=== PATIENT | male | born 1945 | race Caucasian/White ===

== ENCOUNTER → 2021-12-16 09:39 | Outpatient (BNVA) | payer MEDICARE, BC, SELFPAY | PROVIDERS: PCP Student in an Organized Health Care Education/Training Program; Referring Provider Student in an Organized Health Care Education/Training Program; Visit Provider Anesthesiology Pain Medicine | DX: M47.816 Spondylosis without myelopathy or radiculopathy, lumbar region (principal); M51.16 Intervertebral disc disorders with radiculopathy, lumbar region; M67.919 Unspecified disorder of synovium and tendon, unspecified shoulder | CPT/HCPCS: 99204 ==

== ENCOUNTER 2022-01-19 16:29 | Outpatient (CLI) | payer MEDICARE, BC, SELFPAY ==
--- NOTE | 2022-01-19 16:45 | MR_ITS ---
WS: [id number] MRI LUMBAR SPINE NONCONTRAST HISTORY: M48.062 - Spinal stenosis, lumbar region with neurogenic claudication, LEFT leg numbness fro m hip to knee. COMPARISON: None available. TECHNIQUE: Sagittal and axial multisequence imaging is submitted. Mild straightening of the normal lumbar lordosis. Mild disc desiccation throughout. Moderate narrowing of the disc at L4-5. No marrow edema or fracture . Conus terminates normally at L1-2 disc level. L1-L2: Normal. L2-L3: Very shallow LEFT foraminal disc protrusion without contact on the nerve roots. No high-grade stenosis. L3-L4: Mild annular disc bulging with ligamentum flavum and facet joint arthritis. There is encroachm ent upon the thecal sac. Narrowing of the subarticular recesses bilaterally and additional bilateral foraminal narrowing, LEFT greater than RIGHT. L4-L5: Mild annular disc bulging and mild facet arthritis. There is encroachment and narrowing of the central thecal sac. There is disc contacting and slightly displacing and effacing the ventral CSF. A symmetric disc bulging extends greatest into the LEFT subarticular recess and foramen causing complet e effacement of the fat. There is moderate central stenosis with disc contacting the traversing L5 ne rve roots in the subarticular recesses and additional mild bilateral foraminal narrowing. L5-S1: No stenosis. LEFT kidney is not present. Prior nephrectomy. MR/MR lumbar spine wo con* [id number] IMPRESSION: 1. Moderate central canal stenosis with bilateral subarticular recess stenosis and disc contacting the traversing L5 nerve roots bilaterally. Stenosis is a c ombination of facet disease and disc disease and osteophytosis. Slightly greate r contact on the LEFT L5 nerve root in the subarticular recess and proximal for amen. 2. Very shallow LEFT foraminal disc protrusion at L2-3. 3. Mild narrowing of the subarticular recesses and foramina at L3-4. LEFT grea ter than RIGHT. 4. Prior LEFT nephrectomy.
--- NOTE | 2022-01-19 17:15 | MR_ITS ---
WS: [id number] MRI LEFT SHOULDER HISTORY: LEFT shoulder pain. Surgery 6 years ago. COMPARISON: None available. TECHNIQUE: Multiplanar sequences of the shoulder joint are submitted. No significant narrowing or osteophytosis at the AC joint. Mild widening of the AC joint without disp lacement may be from the prior surgery. No os acromion. Biceps tendon is not identified in the bicipi justice groove. Mildly high riding humeral head. Moderate narrowing of the glenohumeral joint with small osteophytes along the articular surface of the glenoid. Increased T2 signal in the distal supraspinatus tendon. M ost significant from tendinopathy. No full-thickness tear is identified. A very tiny insertion site t ear with interstitial extension is not completely excluded. No additional signal abnormalities within the tendons of the rotator cuff. No muscle atrophy or edema. Surface irregularity involving the leo oid and intrasubstance degeneration. No definite tears are identified. There are linear tracts in the proximal humerus. This may be from prior shoulder surgery. MR/MR shoulder LT wo con* [id number] IMPRESSION: 1. No significant rotator cuff tear identified. 2. Suspicious but not confirmatory for very small insertion site tear of the s upraspinatus with interstitial extension. 3. No muscle edema or atrophy. 4. Biceps tendon not identified in the bicipital groove. Suspect chronic bicep s tendon dislocation or tear. 5. Intrasubstance degeneration in the labrum. 6. Glenohumeral joint arthritis is mild to moderate.
== END 2022-01-19 16:30 | disposition home or self-care (01) ==
PROVIDERS: PCP Student in an Organized Health Care Education/Training Program; Visit Provider Anesthesiology Pain Medicine
DX: M48.062 Spinal stenosis, lumbar region with neurogenic claudication (principal); M67.919 Unspecified disorder of synovium and tendon, unspecified shoulder; Z90.5 Acquired absence of kidney
CPT/HCPCS: 72148; 73221

== ENCOUNTER → 2022-01-26 09:10 | Outpatient (BNVA) | payer MEDICARE, BC, SELFPAY | PROVIDERS: PCP Student in an Organized Health Care Education/Training Program; Visit Provider Anesthesiology Pain Medicine | DX: G89.29 Other chronic pain (principal); M47.816 Spondylosis without myelopathy or radiculopathy, lumbar region; M51.16 Intervertebral disc disorders with radiculopathy, lumbar region; M67.912 Unspecified disorder of synovium and tendon, left shoulder; M79.605 Pain in left leg | CPT/HCPCS: 99214 ==

== ENCOUNTER → 2023-03-31 08:32 | Outpatient (BNVA) | payer MEDICARE, BC, SELFPAY | PROVIDERS: PCP Family Medicine; Visit Provider Family Medicine | DX: I10 Essential (primary) hypertension (principal); E78.5 Hyperlipidemia, unspecified; M51.16 Intervertebral disc disorders with radiculopathy, lumbar region; I25.10 Atherosclerotic heart disease of native coronary artery without angina pectoris | CPT/HCPCS: 80053; 80061 ==

== ENCOUNTER 2023-09-06 15:17 | Outpatient (CLI) | payer MEDICARE, BC, SELFPAY ==
--- NOTE | 2023-09-06 15:30 | CT_ITS ---
WS: [id number] CT ANGIOGRAM CEREBRAL AND CAROTID ARTERIES HISTORY: hearing heartbeat in left ear TECHNIQUE: CT angiogram is performed of the carotid and cerebral arteries. During arterial injection imaging is obtained from the skull vertex to the aortic arch in 1.25 mm imaging. Coronal and sagittal reformats are submitted. Additional multi planar reformats of the carotid and cerebral arteries are submitted, MIP imaging also reviewed. NASCET criteria utilized. [facility] CT [facility] at least one of these dose optimization techniques: automated exposure control; mA and/or kV adjust ment per patient size (includes targeted exams where dose is matched to clinical indication); or iter ative reconstruction. CONTRAST: Omnipaque 350; 100 mL IV. DLP: 1347.43 mGy.cm COMPARISON: None available. Noncontrast CT head: No intracranial hemorrhage. Mild small vessel ischemic disease and mild atrophy. Ectatic vertebral and carotid arteries with calcification. Carotid Angiogram: Right carotid: Common carotid artery: Arises normally from the innominate artery. No significant plaque or stenosis. Internal carotid artery: Small amount of calcified plaque and intimal thickening. Stenosis less than 50%. External carotid artery: Patent. Left carotid: Common carotid artery: Arises normally from the aorta. No significant plaque or stenosis. Internal carotid artery: Mild calcified plaque and intimal thickening at the bifurcation. No high-gra de stenosis. External carotid artery: Patent. Right vertebral artery: Increasing calcification in the distal vertebral artery. No occlusion. Left vertebral artery: Increasing calcification in the distal vertebral artery. No occlusions. Subclavian arteries: No stenosis or significant abnormality. Upper thorax: Normal. Thyroid gland: Normal. Osseous structures: Advanced cervical spondylosis. No fractures. CEREBRAL ANGIOGRAM: Intracranial vertebral arteries: Moderate amount of calcified plaque. No high-grade stenosis. Basilar artery: No significant stenosis or occlusion. No aneurysm. Intracranial Internal carotid arteries: Calcified plaque through the cavernous carotid arteries. No h igh-grade occlusions. Middle cerebral arteries: Normal. Anterior cerebral arteries and ACOM: Normal. Posterior cerebral arteries and PCOM's: Normal. Dural venous sinuses are normally enhancing. Mastoid air cells: Normal. No dehiscence of the wall of the inner ear or bulging of the carotid arter y or jugular vein. Paranasal sinuses: Mild mucoperiosteal thickening RIGHT maxillary sinus. Calvarium: Normal. IMPRESSION: 1. No significant cervical carotid artery stenosis. Stenosis less than 50%. 2. Increasing plaque in the cavernous carotid arteries. Stenosis less than 50%. 3. No cerebral artery aneurysm or occlusions. 4. No bulging of the carotid artery or jugular artery into the auditory canal.
[2023-09-06 15:51] LABS: Blood Urea Nitrogen 20 mg/dL (8-23)
[2023-09-06] MEDS: iohexol 350 mg/mL 500 mL Btl (per mL) IV (16:08)
== END 2023-09-06 15:18 | disposition home or self-care (01) ==
LOC: RAD 15:18
PROVIDERS: PCP Family Medicine; Visit Provider Family Medicine
DX: H93.8X2 Other specified disorders of left ear (principal); I25.10 Atherosclerotic heart disease of native coronary artery without angina pectoris; I65.23 Occlusion and stenosis of bilateral carotid arteries; R09.89 Other specified symptoms and signs involving the circulatory and respiratory systems
CPT/HCPCS: 70496; 70498; 82565; 84520; Q9967

== ENCOUNTER 2023-09-20 14:57 | Outpatient (CLI) | payer MEDICARE, BC, SELFPAY ==
--- NOTE | 2023-09-20 15:15 | USCV_ITS ---
Justin Burt Age: 78 Gender: M : 1945 Exam Date: 09/20/2023 15:07 Ordering Phys: Denis Ross NP Technologist: NAYANA Exam Location: [facility] [place]_ Indication: Accelerated HTN Aortic Velocity @ SMA (cm/s) 93.4 RIGHT KIDNEY LEFT KIDNEY Velocity (cm/s) Velocity (cm/s) Sys/Griffith Sys/Griffith Resistive Index Resistive Index 155.8 / 39.7 0.74 Proximal Renal Artery / 160.1 / 45.1 0.72 Mid Renal Artery / 212.1 / 54.1 0.75 Distal Renal Artery / 194.1 / 48.5 0.75 Hilar / 38.8 / 11.9 0.69 Upper Pole / 35.8 / 10.1 0.72 Mid Pole / 47.7 / 9.5 0.80 Lower Pole / 2.30 Renal Aortic Ratio Accleration Index (cm/sec2) 3402.0 Hilar 0 376.00 Upper Pole 322.00 Mid Pole 607.00 Lower Pole 113.3 Kidney Length (mm) FINDINGS Left Nephrectomy. Moderate elevation of systolic velocity right renal artery. No diastolic velocity elevation. Renal aortic ratio is still below 3.0. CONCLUSIONS Moderate renal artery stenosis but less than critical based on the doppler. Recommend additional imaging to confirm, CTA renal arteries would be most helpful. Dr. Yue Pizano DO (Electronically Signed) Final Date: 20 September 2023 16:11 S
== END 2023-09-20 14:58 | disposition home or self-care (01) ==
LOC: RAD 14:57
PROVIDERS: PCP Family Medicine; Visit Provider Clinical Nurse Specialist Adult Health
DX: I10 Essential (primary) hypertension (principal); I70.1 Atherosclerosis of renal artery
CPT/HCPCS: 93975

== ENCOUNTER 2023-10-03 16:20 | Outpatient (CLI) | payer MEDICARE, BC, SELFPAY ==
--- NOTE | 2023-10-03 16:30 | CT_ITS ---
WS: [id number] CT ANGIOGRAPHY ABDOMEN AORTA HISTORY: Renal Stenosis TECHNIQUE: CT angiogram is performed during IV injection. Reformation images reviewed. All CT scans a t [email or web address] use at least one of these dose optimization techniques: automated exposure contro l; mA and/or kV adjustment per patient size (includes targeted exams where dose is matched to clinica l indication); or iterative reconstruction. CONTRAST: Omnipaque 350; 100 mL IV. DLP: 512.79 mGy.cm COMPARISON: Renal artery Doppler 09/20/2023 Lung bases are clear. Very mild cardiomegaly. Small hiatal hernia. Abdominal aorta: Good opacification and enhancement of the abdominal aorta. No aneurysm. There is mil d atherosclerotic plaque. No ulcerated plaque. Good enhancement of the RIGHT renal artery. There is a focal calcified plaque at the origin of the renal artery but there is no stenosis. The renal artery is widely patent to the level of the renal pelvis. Normal branching pattern. Only a single RIGHT steffany l artery is identified. Mild atherosclerotic plaque at the origin of the celiac axis and SMA. No sign ificant stenosis and no filling defects. There is good opacification into the proximal common iliac a rteries. Status post LEFT nephrectomy. No mass or abnormality at the LEFT renal bed. Early enhancement of the liver and spleen. The spleen is measuring 14.2 cm in length which is enlarge d. Gallbladder is contracted and may contain stones. There is no adjacent gallbladder inflammation. N egative pancreas. No adenopathy or ascites. The visualized GI tract is negative for obstruction. Ther e are a few diverticula noted in the descending colon. There is also some very mild mesenteric soft t issue stranding and infiltration with a few small lymph nodes. IMPRESSION: 1. No significant RIGHT renal artery stenosis. Minimal calcified plaque at the origin with no narrowi ng of the lumen. 2. Status post LEFT nephrectomy. 3. Very mild sclerosing mesenteritis. 4. Mild splenomegaly.
[2023-10-03] MEDS: iohexol 350 mg/mL 500 mL Btl (per mL) IV (16:47)
== END 2023-10-03 16:21 | disposition home or self-care (01) ==
LOC: RAD 16:21
PROVIDERS: PCP Family Medicine; Visit Provider Clinical Nurse Specialist Adult Health
DX: I70.1 Atherosclerosis of renal artery (principal); Z90.5 Acquired absence of kidney; K65.4 Sclerosing mesenteritis; R16.1 Splenomegaly, not elsewhere classified
CPT/HCPCS: 74175; Q9967

== ENCOUNTER → 2024-04-17 09:20 | Outpatient (BNVA) | payer MEDICARE, BC, SELFPAY | PROVIDERS: PCP Family Medicine; Visit Provider Family Medicine | DX: I15.1 Hypertension secondary to other renal disorders (principal); I25.10 Atherosclerotic heart disease of native coronary artery without angina pectoris; E78.5 Hyperlipidemia, unspecified; R35.1 Nocturia | CPT/HCPCS: 80053; 80061; 84153; 85025 ==

== ENCOUNTER → 2024-10-16 09:27 | Outpatient (BNVA) | payer MEDICARE, BC, SELFPAY | PROVIDERS: PCP Family Medicine; Visit Provider Family Medicine | DX: I25.10 Atherosclerotic heart disease of native coronary artery without angina pectoris (principal); I15.1 Hypertension secondary to other renal disorders; F41.9 Anxiety disorder, unspecified; E78.5 Hyperlipidemia, unspecified; R97.20 Elevated prostate specific antigen [PSA]; M25.552 Pain in left hip | CPT/HCPCS: 80053; 80061; 84153 ==

== ENCOUNTER → 2024-11-18 09:34 | Outpatient (BNVA) | payer MEDICARE, BC, SELFPAY | PROVIDERS: PCP Family Medicine; Visit Provider Specialist | DX: M25.552 Pain in left hip (principal); M53.3 Sacrococcygeal disorders, not elsewhere classified | CPT/HCPCS: 73502; 99204 ==

== ENCOUNTER → 2024-11-28 14:26 | Outpatient (BNVA) | payer MEDICARE, BC, SELFPAY | PROVIDERS: PCP Family Medicine; Visit Provider Orthopaedic Surgery | DX: M51.16 Intervertebral disc disorders with radiculopathy, lumbar region (principal); M48.062 Spinal stenosis, lumbar region with neurogenic claudication | CPT/HCPCS: 72110; 99204 ==

== ENCOUNTER 2024-12-16 12:51 | Outpatient (CLI) | payer MEDICARE, BC, SELFPAY ==
--- NOTE | 2024-12-16 13:00 | MR_ITS ---
WS: [email or web address] MRI LUMBAR SPINE NONCONTRAST TECHNIQUE: Sagittal T1, T2 and STIR imaging. Axial T1 and T2 imaging. CLINICAL INFORMATION: back pain COMPARISON: MRI 01/19/2022 FINDINGS: Mild lumbar curve. No acute compression. No high-grade central canal stenosis. Disc desiccation worse at L4-5. L1-L2: Mild facet arthropathy. Spinal canal foramina are patent. L2-L3: Mild annular bulging. Slight narrowing of the subarticular recess bilaterally. Mild facet arthropathy. Foramen are patent. L3-L4: Mild annular bulging with impingement LEFT subarticular recess and traversing LEFT L4 nerve root. LEFT foraminal protrusion impinges the exiting L3 nerve root with moderate LEFT foraminal narrowing. RIGHT foramen is patent. Moderate facet arthropathy. L4-L5: Disc desiccation. Spinal canal is patent. Mild narrowing of the subarticular recess bilaterally. Mild bilateral foraminal narrowing. Moderate facet arthropathy. L5-S1: Moderate facet arthropathy. Spinal canal and foramen are patent. Visualized pelvic bony structures: Normal. Paravertebral soft tissues: Normal. MR/MR lumbar spine wo con* [id number] IMPRESSION: 1. Mild lumbar curve. No acute compression. 2. Impingement of the LEFT L3-4 subarticular recess and traversing LEFT L4 ner ve root. This appears progressed compared to previous. 3. Moderate LEFT foraminal narrowing L3-4 impinges the exiting LEFT L3 nerve r oot with a LEFT foraminal protrusion. This also appears progressed compared to previous. 4. Annular bulge L4-5 with impingement on the traversing L5 nerve roots bilate rally and mild bilateral foraminal narrowing similar to previous. 5. Slight narrowing of the LEFT L2-3 subarticular recess similar to previous w ith mild LEFT foraminal narrowing.
== END 2024-12-16 12:52 | disposition home or self-care (01) ==
PROVIDERS: PCP Family Medicine; Visit Provider Orthopaedic Surgery
DX: M51.26 Other intervertebral disc displacement, lumbar region (principal); M43.8X6 Other specified deforming dorsopathies, lumbar region; R93.7 Abnormal findings on diagnostic imaging of other parts of musculoskeletal system; M48.061 Spinal stenosis, lumbar region without neurogenic claudication; M51.369 Other intervertebral disc degeneration, lumbar region without mention of lumbar back pain or lower extremity pain; M47.896 Other spondylosis, lumbar region; M47.897 Other spondylosis, lumbosacral region
CPT/HCPCS: 72148

== ENCOUNTER → 2024-12-31 10:31 | Outpatient (BNVA) | payer MEDICARE, BC, SELFPAY | PROVIDERS: PCP Family Medicine; Visit Provider Orthopaedic Surgery | DX: M48.062 Spinal stenosis, lumbar region with neurogenic claudication (principal); M51.16 Intervertebral disc disorders with radiculopathy, lumbar region | CPT/HCPCS: 99214 ==

== ENCOUNTER 2025-02-17 15:02 | Outpatient (CLI) | payer MEDICARE, BC, SELFPAY ==
[2025-02-17] MEDS: iohexol 350 mg/mL 500 mL Btl (per mL) PO (15:27)
[2025-02-17 15:58] LABS: Blood Urea Nitrogen 25 mg/dL (8-23)
--- NOTE | 2025-02-17 16:00 | CT_ITS ---
WS: [id number] CT ABDOMEN AND PELVIS WITH CONTRAST HISTORY: LEFT upper quadrant pain since September. History of renal cancer. Prior LEFT nephrectomy. TECHNIQUE: Imaging performed of the abdomen and pelvis with IV contrast. Single phase imaging of the abdomen. Coronal and sagittal reformats are submitted. All CT scans at [facility] use at least one of these dose optimization techniques: automated exposure control; mA and/or kV adjustment per patient size (includes targeted exams where dose is matched to clinical indication); or iterative reconstruction. IV CONTRAST: Omnipaque 350; 100 mL IV. Oral contrast: Yes. DLP: 943.16 mGy.cm COMPARISON: 10/03/2023 Lower thorax: Lung bases are clear. Heart is normal size. Small hiatal hernia. Liver/biliary system: Normal size with no intrahepatic dilatation. Gallbladder: Slightly contracted gallbladder. Tiny amount of sludge or stones in the dependent portion of the gallbladder is suspected. No evidence for acute cholecystitis. Pancreas: Mild diffuse pancreatic atrophy. No pancreatic duct dilatation. Spleen: Normal size spleen. No mass or infarct. Adrenal glands: Normal RIGHT adrenal gland. LEFT adrenal gland is definitely visualized. Adrenal gland may have been removed during the LEFT nephrectomy. Right kidney: Normal. Left kidney: Prior LEFT nephrectomy. No recurrent mass or adenopathy in the renal bed. Aorta: Mild atherosclerosis with no aneurysm. Lymphadenopathy: There are a few scattered small mesenteric lymph nodes in the LEFT abdomen which were also present on the prior study. Free fluid: None. GI tract: No GI tract obstruction. Numerous diverticula scattered throughout the colon. No obstruction or acute diverticulitis. Abdominal wall: Unremarkable abdominal wall. No hernia. Pelvis: No free fluid or adenopathy within the pelvis. Bones: Bilateral mixed lytic and sclerotic bone lesions in the femoral heads. The largest on the RIGHT measures 18 mm. Smaller on the LEFT is 10 mm. Suspect these are probably benign enchondromas. CT/CT abdomen pelvis w con* [id number] IMPRESSION: 1. Status post LEFT nephrectomy. No recurrent mass or adenopathy at the renal bed. 2. LEFT adrenal gland is not identified and may have been removed surgically a lso. 3. Numerous diverticula throughout the colon. No evidence for acute diverticul itis or obstruction. 4. Normal appendix. 5. Bilateral mixed cystic and sclerotic lesions in the femoral heads. 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 These can be further evaluated by nuclear medicine bone scan apoorva howell.
[2025-02-17] MEDS: iohexol 350 mg/mL 500 mL Btl (per mL) IV (16:23)
== END 2025-02-17 15:03 | disposition home or self-care (01) ==
PROVIDERS: PCP Family Medicine; Visit Provider Family Medicine
DX: R10.9 Unspecified abdominal pain (principal); Z98.890 Other specified postprocedural states; K57.30 Diverticulosis of large intestine without perforation or abscess without bleeding; R93.7 Abnormal findings on diagnostic imaging of other parts of musculoskeletal system; K44.9 Diaphragmatic hernia without obstruction or gangrene; K86.89 Other specified diseases of pancreas; I70.0 Atherosclerosis of aorta; R59.0 Localized enlarged lymph nodes
CPT/HCPCS: 74177; 82565; 84520

== ENCOUNTER → 2025-02-25 14:17 | Outpatient (BNVA) | payer MEDICARE, BC, SELFPAY | PROVIDERS: PCP Family Medicine; Visit Provider Orthopaedic Surgery | DX: Z01.818 Encounter for other preprocedural examination (principal); M48.062 Spinal stenosis, lumbar region with neurogenic claudication | CPT/HCPCS: 36415; 80053; 81001; 85025; 99214 ==

== ENCOUNTER 2025-03-03 08:06 | Outpatient (CLI) | payer MEDICARE, BC, SELFPAY ==
--- NOTE | 2025-03-03 08:45 | NM_ITS ---
WS: [email or web address] NUCLEAR MEDICINE BONE SCAN Radiopharmaceutical: 25.3 Tc-99m MDP mCi IV Injection site: Antecubital Postinjection imaging delay: 1 hr CLINICAL INFORMATION: abnormal cysts in hips COMPARISON: CT 02/17/2025 FINDINGS: Bone lesions: There are no osseous lesions suspicious for metastatic disease. Soft tissue contours: Normal. Kidneys: LEFT nephrectomy Other findings: No abnormal radiotracer uptake to correspond to the sclerotic lesions in the femoral heads described on the CT. NM/NM bone scan whole body* [id number] IMPRESSION: 1. No evidence of osseous metastatic disease. 2. No abnormal radiotracer uptake in the femoral heads bilaterally.
== END 2025-03-03 08:07 | disposition home or self-care (01) ==
PROVIDERS: PCP Family Medicine; Visit Provider Family Medicine
DX: M25.552 Pain in left hip (principal); M54.9 Dorsalgia, unspecified; G89.29 Other chronic pain; Z98.890 Other specified postprocedural states
CPT/HCPCS: 78306; A9561

== ENCOUNTER → 2025-03-11 08:03 | Outpatient (BNVA) | payer MEDICARE, BC, SELFPAY | PROVIDERS: PCP Family Medicine; Visit Provider Family Medicine | DX: Z01.818 Encounter for other preprocedural examination (principal) | CPT/HCPCS: 93005 ==

== ENCOUNTER 2025-03-14 09:10 | Day surgery (SDC) | payer MEDICARE, BC, SELFPAY ==
[2025-03-14] VITALS (10 sets, daily range): BP systolic 126–184; BP diastolic 50–91; PULSE 68–100; RESP 14–18; TEMP 36.1–36.6; O2SAT 92–99; BMI 33.0
[2025-03-14] MEDS: sodium chloride 0.9% 1,000 ML 30 ML IV (09:39)
--- NOTE | 2025-03-14 10:00 | W.PM.OPSUD ---
Surgery/Procedure H&P Update DATE OF PROCEDURE: March 14, 2025 DATE H&P PERFORMED: 02/25/25 H&P UPDATE INFORMATION: I have reviewed H&P completed within last 30 days, I have examined patient prior to procedure and No changes to prior documentation PREOP DIAGNOSIS: Lumbar stenosis with neurogenic claudication PLANNED PROCEDURE: Operation Date: 03/14/25 11:00 Proposed Procedures p Lumbar Spine Decompression Lumbar Decompression(Not Applicable) - Edwin Mcmillan DO
--- NOTE | 2025-03-14 10:05 | ANES.PREANE2 ---
Pre-Anesthetic Assessment Height/Weight: Height 6 ft Weight 244 lb Temp Pulse Resp BP Pulse Ox O2 Del Method 97.5 F L 68 18 176/87 95 Room Air 03/14/25 09:31 03/14/25 09:31 03/14/25 09:31 03/14/25 09:31 03/14/25 09:31 03/14/25 09:31 Preop Diagnosis: Lumbar stenosis with neurogenic claudication Operation Date: 03/14/25 11:00 Proposed Procedures p Lumbar Spine Decompression Lumbar Decompression(Not Applicable) - Edwin Mcmillan, DO Was Beta Nicolas taken within 24 hours: N/A Was Clonidine taken within 24 hours: N/A Last intake: Intake Last Liquid Date 03/13/25 Last Liquid Time 21:00 Last Solid Date 03/13/25 Last Solid Time 21:00 Social No alcohol and No tobacco Exam alert, oriented x 3, clear to auscultation bilaterally and regular rate & rhythm Airway Submandibular: within normal limits Cervical ROM: within normal limits Mallampati: Class III Dentition: full Anesthetic Plan ASA status: 3 Anesthesia: General Other: No prior issues with anesthesia NPO since yesterday evening History of hypertension on amlodipine and hydralazine. Preop BP 176/87 Labs from 02/25/2025 reviewed and acceptable for procedure EKG shows sinus rhythm METs greater than 4 Plan for GETA Medications/Allergies Home Medications ?Medication ?Instructions ?Recorded ?Confirmed ?Last Taken ?Type naproxen 500 mg tablet 500 mg PO BID PRN pain 03/23/23 03/13/25 Unknown History mecobalamin (vitamin B12) 1,000 1,000 mcg PO DAILY 03/11/25 03/13/25 Unknown History mcg chewable tablet pollens extract 1 tab PO DAILY 03/11/25 03/13/25 Unknown History amlodipine 10 mg tablet 10 mg PO DAILY 03/13/25 03/13/25 03/14/25 History atorvastatin 40 mg tablet 40 mg PO DAILY 03/13/25 03/13/25 03/13/25 History escitalopram oxalate 10 mg tablet 10 mg PO DAILY 03/13/25 03/13/25 Unknown History hydralazine 25 mg tablet 25 mg PO TID 03/13/25 03/13/25 03/14/25 History Allergies Allergy/AdvReac Type Severity Reaction Status Date / Time No Known Allergies Allergy Verified 03/11/25 08:27 Current Medications Generic Name Dose Route Start Last Admin Trade Name Freq PRN Reason Stop Dose Admin Sodium Chloride 1,000 mls @ 30 mls/hr 03/14/25 09:30 03/14/25 09:39 Sodium Chloride 0.9% IV 03/15/25 09:29 30 mls/hr .Q24H JUAN Administration PFSH Anesthesia Medical History Anxiety Coronary artery disease Sebaceous cyst Hyperlipidemia Hypertension Chronic back pain Surgical History Previous back surgery H/O kidney removal Family History Mother Cancer Social History Smoking and tobacco/nicotine status: never used tobacco/nicotine Second hand smoke exposure: No Alcohol intake: current Alcohol type: beer Substance/Drug Use: never
[2025-03-14] MEDS: ceFAZolin 2,000 mg SDV 2000 MG IVP (10:15)
[2025-03-14] MEDS: lidocaine-epi 1% 20 mL INJ 10 ML INJECTION (11:04)
--- NOTE | 2025-03-14 11:39 | P.OP_ITS ---
Operative Report Date of procedure: March 14, 2025 Pre-op diagnosis: Lumbar stenosis with neurogenic claudication Post-op diagnosis: same Procedure done: 1. L3-4 laminectomy with partial facetectomy 2. L4-5 laminectomy and partial facetectomy Surgeon: Edwin Mcmillan DO Estimated blood loss (mL): 25 Procedure: 1. L3/4 laminectomy with partial facetectomy 2. L4-5 laminectomy with partial facetectomy Patient is brought to the operative suite. After undergoing anesthesia they are placed in the prone position. All areas of impingement are well padded. Patient is then prepped and draped in the normal sterile fashion. A skin incision is made over the L3/4 level. This is confirmed under c-arm guidance. A series of dilators are passed and the tubular retractor is docked on the L3 lamina. A bovie is used to clear the soft tissue off the lamina and the L 3/4 facet joint. A high speed francine is then used to perform the laminectomy and take down the medial aspect of the L 3/4 facet joint. A kerrison rongeure was then used to take down the remaining lamina and smooth the edge of the laminectomy up to the point where the ligamentum flavum attaches. Attention was then brought to the medial aspect of the facet joint. The remaining medial aspect of the superior and inferior aspect of the facet joint were taken down with the kerrison from the pedicle of L3 to L 4. The facet joint had significant hypertrophy. Attention was then brought to the Ligamentum Flavum. The ligament was taken down from the lamina of L3 to L4 and out medially to the remaining facet joint. The ligament was thick. The dura was then exposed. The dura was in good repair. The L3 nerve was then traced with a curette out the L3/4 foramen and found to be adequately decompressed. The L4 nerve was traced with a curette around the L4 pedicle. The lateral recess was opened with a kerrison helping to further decompress the L4 nerve. Wound is then irrigated copiously with saline and surgiflo is used to stop any bleeding. The tubular retractor is removed and the A skin incision is made over the L4/5 level. This is confirmed under c-arm guidance. A series of dilators are passed and the tubular retractor is docked on the L4 lamina. A bovie is used to clear the soft tissue off the lamina and the L 4/5 facet joint. A high speed francine is then used to perform the laminectomy and take down the medial aspect of the L 4/5 facet joint. A kerrison rongeure was then used to take down the remaining lamina and smooth the edge of the laminectomy up to the point where the ligamentum flavum attaches. Attention was then brought to the medial aspect of the facet joint. The remaining medial aspect of the superior and inferior aspect of the facet joint were taken down with the kerrison from the pedicle of L4 to L 5. The facet joint had significant hypertrophy. Attention was then brought to the Ligamentum Flavum. The ligament was taken down from the lamina of L4 to L5 and out medially to the remaining facet joint. The ligament was thick. The dura was then exposed. The dura was in good rep air. The L4 nerve was then traced with a curette out the L4/5 foramen and found to be adequately decompressed. The L5 nerve was traced with a curette around the L5 pedicle. The lateral recess was opened with a kerrison helping to further decompress the L5 nerve. Wound is then irrigated copiously with saline and surgiflo is used to stop any bleeding. The tubular retractor is removed and the wound is closed with vicryl and monocryl suture. Glue is then used to protect the wound. A sterile dressing is then placed. Patient was then placed in the supine position and transferred to the PACU in stable condition.
--- NOTE | 2025-03-14 11:40 | XR_ITS ---
WS: [email or web address] Exam: XR lumbar spine 2-3V* [id number] Date/Time of Exam: 03/14/2025 11:41 AM Reason For Exam: OR PICS Limited AP images of the lower lumbar spine are submitted. Images were obtained for preoperative localization purposes.
--- NOTE | 2025-03-14 13:10 | ANE.PACU2 ---
Inpatient post-anesthesia follow up: Airway intact: Yes Vital signs: Temperature 97.8 F Pulse Rate 76 Respiratory Rate 18 Blood Pressure 126/50 Pulse Oximetry 92 Oxygen Delivery Me thod Room Air Oxygen Flow Rate 6 Fraction of Inspir ed Oxygen Hydration adequate: Yes Nausea and vomiting: No Pain level: 1 Mental status: Baseline
== END 2025-03-14 13:10 | disposition home or self-care (01) ==
PROVIDERS: PCP Family Medicine; Visit Provider Orthopaedic Surgery
PROC: (CPT 63005; principal; 2025-03-14 10:40)
DX: M48.062 Spinal stenosis, lumbar region with neurogenic claudication (principal); I10 Essential (primary) hypertension; E78.5 Hyperlipidemia, unspecified; I25.10 Atherosclerotic heart disease of native coronary artery without angina pectoris; Z79.899 Other long term (current) drug therapy
CPT/HCPCS: 63047; 63048; 72100; 76000; J0690; J1100; J2405; J2704; J2710; J3010; J3490; J7030; J9999

== ENCOUNTER → 2025-03-18 14:52 | Outpatient (BNVA) | payer MEDICARE, BC, SELFPAY | PROVIDERS: PCP Family Medicine; Visit Provider Orthopaedic Surgery | DX: Z98.890 Other specified postprocedural states (principal) | CPT/HCPCS: 99024 ==

== ENCOUNTER → 2025-03-27 10:12 | Outpatient (BNVA) | payer MEDICARE, BC, SELFPAY | PROVIDERS: PCP Family Medicine; Visit Provider Orthopaedic Surgery | DX: Z98.890 Other specified postprocedural states (principal) | CPT/HCPCS: 99024 ==

== ENCOUNTER → 2025-04-23 08:25 | Outpatient (BNVA) | payer MEDICARE, BC, SELFPAY | PROVIDERS: PCP Family Medicine; Visit Provider Family Medicine | DX: I15.1 Hypertension secondary to other renal disorders (principal); I25.10 Atherosclerotic heart disease of native coronary artery without angina pectoris; R73.9 Hyperglycemia, unspecified | CPT/HCPCS: 80048 ==

== ENCOUNTER → 2025-04-24 10:11 | Outpatient (BNVA) | payer MEDICARE, BC, SELFPAY | PROVIDERS: PCP Family Medicine; Visit Provider Orthopaedic Surgery | DX: Z98.890 Other specified postprocedural states (principal) | CPT/HCPCS: 99024 ==

== ENCOUNTER → 2025-06-03 10:42 | Outpatient (BNVA) | payer MEDICARE, BC, SELFPAY | PROVIDERS: PCP Family Medicine; Visit Provider Orthopaedic Surgery | DX: Z98.890 Other specified postprocedural states (principal) | CPT/HCPCS: 99024 ==

== ENCOUNTER → 2025-10-01 10:04 | Outpatient (BNVA) | payer MEDICARE, BC, SELFPAY | PROVIDERS: PCP Family Medicine; Visit Provider Family Medicine | DX: I15.1 Hypertension secondary to other renal disorders (principal); I25.10 Atherosclerotic heart disease of native coronary artery without angina pectoris; E78.5 Hyperlipidemia, unspecified; R73.9 Hyperglycemia, unspecified; R97.20 Elevated prostate specific antigen [PSA] | CPT/HCPCS: 80053; 80061; 83036; 84153; 85025 ==